=== PATIENT | male | born 1950 | race Caucasian/White ===

== ENCOUNTER 2017-04-07 22:00 | Emergency (ER) | payer MEDICARE ==
[2017-04-07] MEDS ORDERED: Ibuprofen TAB* 400 MG PO ONE (22:19)
[2017-04-07 22:20] VITALS: BP 136/84
[2017-04-07] MEDS ORDERED: Oseltamivir CAP* 75 MG PO ONE (22:39)
[2017-04-07] MEDS ORDERED: Oseltamivir CAP* 75 MG ONE (22:40)
--- NOTE | 2017-04-07 22:43 | UC ---
Luis Angel Claros Thomas, scribed for Andrew Reynoso MD on 04/07/17 at 2220 . Dizzy HPI HPI Summary: The patient is a 66 year old male presenting to Urgent Care complaining of dizziness that began today. For the last couple of days, the patient has experienced a dry cough. Today, the patient went to his primary care provider and was given Acetaminophen-Codeine and Benzonatate, which he took today at 12: 00. He has a fever at 100.6. Patient additionally c/o nasal discharge, nasal congestion, postnasal drip, and myalgia. Patient denies sinus pain and shortness of breath. - History Of Current Complaint Stated Complaint: DIZZY, WEAK Time Seen by Provider: 04/07/17 22:14 Hx Obtained From: Patient Onset/Duration: Lasting Hours - onset earlier today, Still Present Timing: Constant Severity Currently: Moderate Pain Intensity: 0 Pain Scale Used: 0-10 Numeric Associated Signs And Symptoms: Negative: SOB - Allergies/Home Medications Allergies/Adverse Reactions: Allergies Allergy/AdvReac Type Severity Reaction Status Date / Time No Known Allergies Allergy Verified 04/07/17 22:10 Home Medications: Home Medications Acetaminop/Codeine 30 MG TAB* [Tylenol/Codeine 30 MG TAB*] 1 tab PO Q6H PRN [History Confirmed 04/07/17] Aspirin [Aspirin 81 MG TAB] 81 mg PO 04/07/17 [History Confirmed 04/07/17] Benzonatate CAP* [Tessalon 100 MG CAP*] 100 mg PO TID PRN 04/07/17 [History Confirmed 04/07/17] Finasteride TAB* [Proscar TAB*] 5 mg PO DAILY 04/07/17 [History Confirmed ] Lisinopril TAB* [Prinivil TAB 10 MG*] 10 mg PO DAILY 04/07/17 [History Confirmed 04/07/17] PMH/Surg Hx/FS Hx/Imm Hx Previously Healthy: No - DM, Sciatica - Surgical History Surgical History: Yes Surgery Procedure, Year, and Place: HERNIA REPAIR, ORIF LEFT FOOT - Family History Known Family History: Positive: Other - Patient denies relevant FHx - Social History Lives: With Family Alcohol Use: No Substance Use Type: None Review of Systems Constitutional: Fever ENT: Nasal Discharge, Other - Nasal congestion, postnasal drip Musculoskeletal: Myalgia Neurological: Other - Dizziness Is Patient Immunocompromised?: No All Other Systems Reviewed And Are Negative: Yes Physical Exam Triage Information Reviewed: Yes Vital Signs: Initial Vital Signs Temp 100.6 F 04/07/17 22:12 Pulse 111 04/07/17 22:12 Resp 20 04/07/17 22:12 BP 136/84 04/07/17 22:12 Pulse Ox 97 04/07/17 22:12 Vital Signs Reviewed: Yes - Additional Comments VITAL SIGNS: Reviewed. He is a little tachycardic and febrile. GENERAL: Patient is a well-developed and nourished male who is lying comfortable in the stretcher. Patient is not in any acute respiratory distress. HEAD AND FACE: Normocephalic EYES: PERRLA, EOMI x 2. EARS: Hearing grossly intact. NOSE: He has nasal congestion. MOUTH: Oropharynx within normal limits. NECK: Supple, trachea is midline, no adenopathy, no JVD, no carotid bruit. CHEST: Symmetric, no tenderness at palpation LUNGS: He has coarse breath sounds bilaterally. CVS: Tachycardia, normal rhythm, S1 and S2 present, no murmurs or gallops appreciated. ABDOMEN: Soft, non-tender. Bowel sounds are normal. No abdominal abnormal pulsations. EXTREMITIES: Full ROM in all major joints, no edema, no cyanosis or clubbing. NEURO: Alert and oriented x 3. No acute neurological deficits. Speech is normal and follows commands. SKIN: Dry and warm Diagnostics - Laboratory Diagnostic Studies Completed/Ordered: EKG. Obtained at 10:07. Sinus tachycardia at 111 BPM. There is no STEMI. Normal axis. - Radiology CXR Xray Interpretation: No Acute Changes - Negative for acute process. Radiology Interpretation Completed By: ED Physician Dizzy Course/Dx - Course Course Of Treatment: The patient is a 66 year old male presenting to Urgent Care complaining of dizziness that began today. For the last couple of days, the patient has experienced a dry cough. Today, the patient went to his primary care provider and was given Acetaminophen-Codeine and Benzonatate, which he took today at 12:00. He has a fever at 100.6. Patient additionally c/o nasal discharge, nasal congestion, postnasal drip, and myalgia. Patient denies sinus pain and shortness of breath. The patient is feeling dizzy after he took Tylenol with codeine. I believe that the patients dizziness is secondary to the medications that he took. He is tachycardic because he has a fever; therefore, he was given ibuprofen. A chest x-ray was obtained and it is negative for any acute processes. Influenza A is positive. He will be diagnosed with Influenza and will follow up with primary care. - Differential Dx/Diagnosis Differential Diagnosis/HQI/PQRI: Other - URI, Pneumonia, Influenza Provider Diagnoses: Influenza Discharge - Discharge Plan Condition: Stable Disposition: HOME Prescriptions: Oseltamivir CAP* [Tamiflu CAP*] 75 mg PO BID #10 cap Patient Education Materials: Influenza (ED) Referrals: Jose Lazaro MD [Primary Care Provider] - 3 Days Additional Instructions: Follow up with your primary care physician in 3 days. Return to urgent care for any new or worsening symptoms. The documentation as recorded by the Luis Angel isaacs Thomas accurately reflects the service I personally performed and the decisions made by me, Andrew Reynoso MD.
--- NOTE | 2017-04-08 09:14 | RAD ---
Indication: Cough. 2 views of the chest including dual energy PA views demonstrate no mediastinal shift. Heart is of normal size and configuration. Lung trejo are clear. IMPRESSION: No active cardiopulmonary disease is noted.
== END 2017-04-07 22:45 | disposition home or self-care (01) ==
LOC: UCEAST 22:00
DX: J10.1 Influenza due to other identified influenza virus with other respiratory manifestations (principal)
CPT/HCPCS: 71020; 87502; 93005; 99212; A9270-GY; G0463

== ENCOUNTER 2017-04-15 08:36 | Emergency (ER) | payer MEDICARE ==
[2017-04-15 08:48] VITALS: BP 142/74
--- NOTE | 2017-04-15 09:03 | UC ---
Respiratory Complaint HPI - HPI Summary HPI Summary: 67 yo male was diagnosed with the flu about a week ago took tamiflu and improved now with return of cough no fever chest hurts with cough fatigue and low energy states he has had a cough since late February - History of Current Complaint Chief Complaint: UCChestPain Stated Complaint: COUGH Time Seen by Provider: 04/15/17 08:51 Hx Obtained From: Patient Onset/Duration: Sudden Onset, Gradual Onset, Lasting Minutes Timing: Constant Severity Initially: Moderate Severity Currently: Moderate Pain Intensity: 0 - pain with cough only Pain Scale Used: 0-10 Numeric Character: Cough: Productive Aggravating Factors: Nothing Alleviating Factors: Nothing Related History: Similar Episode/Dx as: - bronchitis - Allergies/Home Medications Allergies/Adverse Reactions: Allergies Allergy/AdvReac Type Severity Reaction Status Date / Time No Known Allergies Allergy Verified 04/07/17 22:10 PMH/Surg Hx/FS Hx/Imm Hx Previously Healthy: Yes Endocrine History: Dyslipidemia Cardiovascular History: Hypertension Respiratory History: Asthma, Bronchitis - Surgical History Surgical History: Yes Surgery Procedure, Year, and Place: HERNIA REPAIR, ORIF LEFT FOOT - Family History Known Family History: Positive: Hypertension, Other - Patient denies relevant FHx - Social History Alcohol Use: None Substance Use Type: None Smoking Status (MU): Never Smoked Tobacco - Immunization History Most Recent Influenza Vaccination: 2017 Review of Systems Constitutional: Fatigue Skin: Negative Eyes: Negative ENT: Negative Respiratory: Cough Cardiovascular: Chest Pain - during coughing spells Gastrointestinal: Negative Genitourinary: Negative Motor: Negative Neurovascular: Negative Musculoskeletal: Negative Neurological: Negative Psychological: Negative Is Patient Immunocompromised?: No All Other Systems Reviewed And Are Negative: Yes Physical Exam Triage Information Reviewed: Yes Appearance: Well-Appearing, No Pain Distress, Well-Nourished Vital Signs: Initial Vital Signs Temp 98.9 F 04/15/17 08:44 Pulse 86 04/15/17 08:44 Resp 16 04/15/17 08:44 BP 142/74 04/15/17 08:44 Pulse Ox 95 04/15/17 08:44 Eyes: Positive: Conjunctiva Clear ENT: Positive: Hearing grossly normal, TMs normal, Uvula midline. Negative: Nasal congestion, Nasal drainage, Tonsillar swelling, Tonsillar exudate, Trismus , Muffled voice, Hoarse voice, Sinus tenderness Neck: Positive: Supple, Nontender, No Lymphadenopathy Respiratory: Positive: Lungs clear, Normal breath sounds, No respiratory distress, No accessory muscle use. Negative: Chest non-tender - tender lateral chest (right and left) tender right sternal border Cardiovascular: Positive: RRR, No Murmur, Pulses Normal Musculoskeletal: Positive: ROM Intact, No Edema Neurological: Positive: Alert Psychological Exam: Normal Skin Exam: Normal UC Diagnostic Evaluation - Laboratory O2 Sat by Pulse Oximetry: 95 - low normal/not hypoxic - Radiology Xray Interpretation: No Acute Changes Radiology Interpretation Completed By: Radiologist - EKG Cardiac Rate: NL Cardiac Rhythm: Sinus: Normal Ectopy: None ST Segment: Normal Respiratory Course/Dx - Differential Dx/Diagnosis Provider Diagnoses: acute bronchitis. chest wall pain due to cough Discharge - Discharge Plan Condition: Stable Disposition: HOME Prescriptions: Amoxicillin PO (*) [Amoxicillin 875 MG (*)] 875 mg PO BID #14 tab Naproxen Sodium [Naproxen Sodium 500 MG TAB] 500 mg PO BID PRN #14 tab PRN Reason: Pain Patient Education Materials: Chest Pain (ED), Acute Bronchitis (ED) Referrals: Jose Lazaro MD [Primary Care Provider] - 4 Days (if not improved) Additional Instructions: recheck for new or worsening symptoms
--- NOTE | 2017-04-15 10:03 | RAD ---
INDICATION: Cough COMPARISON: Most recent comparison chest x-rays dated April 07, 2017 TECHNIQUE: PA and lateral views of the chest were obtained. FINDINGS: The heart and mediastinum are normal in size and contour. The lungs are grossly clear. There is no evidence of large pleural effusion. Visualized bones are normal for the patient's age. There is no radiographic evidence of free air beneath the diaphragm IMPRESSION: No radiographic evidence of acute cardiopulmonary disease.
== END 2017-04-15 10:34 | disposition home or self-care (01) ==
LOC: UCEAST 08:36
DX: J20.9 Acute bronchitis, unspecified (principal)
CPT/HCPCS: 71020; 93005; 99212; G0463

== ENCOUNTER 2018-08-24 09:39 | Emergency (ER) | payer MEDICARE ==
[2018-08-24 10:00] VITALS: BP 157/76
--- NOTE | 2018-08-24 10:04 | UC ---
UC General HPI - HPI Summary HPI Summary: WOKE UP 5 AM THIS MORNING FEELING WEAK AND UNCOORDINATED ON THE RIGHT SIDE. HAS MILD SUGGS BUT STATES HE OTHERWISE FEELS WELL. NO FEVER, NAUSEA, SOB, CP. NO SPEECH DISTURBANCE OR CONFUSION. DENIES ANY TRAUMA. TOOK A BABY ASA THIS MORNING. - History of Current Complaint Stated Complaint: RIGHT SIDE NUMBNESS Time Seen by Provider: 08/24/18 09:47 Hx Obtained From: Patient Onset/Duration: Sudden Onset, Lasting Hours, Still Present Timing: Constant Onset Severity: Moderate Current Severity: Moderate Associated Signs & Symptoms: Positive: Headache, Weakness. Negative: Agitation , Confusion, Edema, Fever, Nausea, SOB - Allergy/Home Medications Allergies/Adverse Reactions: Allergies Allergy/AdvReac Type Severity Reaction Status Date / Time No Known Allergies Allergy Verified 08/24/18 09:55 Home Medications: Home Medications Cyanocobalamin (Vitamin B-12) [Vitamin B-12] 1,000 mcg PO DAILY 08/24/18 [ History Confirmed 08/24/18] Flaxseed Oil [Linseed Oil] 1 tab PO DAILY 08/24/18 [History Confirmed 08/24/18] Garlic [Sm Garlic] 150 mg PO DAILY 08/24/18 [History Confirmed 08/24/18] Multivitamin [Multivitamins] 1 cap PO DAILY 08/24/18 [History Confirmed 08/24/18 ] PMH/Surg Hx/FS Hx/Imm Hx Endocrine History: Diabetes Cardiovascular History: Hypertension Respiratory History: Asthma - Surgical History Surgical History: Yes Surgery Procedure, Year, and Place: HERNIA REPAIR, ORIF LEFT FOOT - Family History Known Family History: Positive: Hypertension, Other - Patient denies relevant FHx - Social History Alcohol Use: None Substance Use Type: None Smoking Status (MU): Never Smoked Tobacco - Immunization History Most Recent Influenza Vaccination: 2017 Review of Systems All Other Systems Reviewed And Are Negative: Yes Constitutional: Positive: Negative Skin: Positive: Negative Respiratory: Positive: Negative Cardiovascular: Positive: Negative Gastrointestinal: Positive: Negative Neurological: Positive: Headache, Weakness Physical Exam Triage Information Reviewed: Yes Appearance: Well-Appearing, No Pain Distress, Well-Nourished Vital Signs Reviewed: Yes Eyes: Positive: Conjunctiva Clear ENT: Positive: Hearing grossly normal Neck: Positive: Supple Respiratory Exam: Normal Cardiovascular Exam: Normal Abdomen Description: Positive: Nontender, Soft Musculoskeletal: Positive: No Edema Neurological: Positive: Alert Psychological: Positive: Age Appropriate Behavior Skin: Positive: Rashes Diagnostics - EKG Cardiac Rate: NL - 98bpm Cardiac Rhythm: Sinus: Normal Ectopy: None ST Segment: Normal Course/Dx - Course Course Of Treatment: CONCERN FOR POSSIBLE INTRACRANIAL EVENT. TO [facility] [facility] BY AMBULANCE. - Diagnoses Provider Diagnosis: Right sided weakness - Physician Notifications Discussed Patient Care With: Osvaldo Contreras - TO [facility] BY AMBULANCE Time Discussed With Above Provider: 09:50 Instructed by Provider To: MD Will See In ED Discharge - Sign-Out/Discharge Documenting (check all that apply): Patient Departure All imaging exams completed and their final reports reviewed: No Studies - Discharge Plan Condition: Guarded Disposition: TRANS HIGHER LVL OF CARE FAC Referrals: Jose Lazaro MD [Primary Care Provider] - - Billing Disposition and Condition Condition: GUARDED Disposition: Trans Higher Lvl of Care Fac
== END 2018-08-24 10:04 | disposition short-term general hospital (02) ==
LOC: UCEAST 09:39
DX: R53.1 Weakness (principal); R27.8 Other lack of coordination; R51 Headache; E11.9 Type 2 diabetes mellitus without complications
CPT/HCPCS: 99213; G0463

== ENCOUNTER 2018-08-24 10:22 | Observation (INO) | payer MEDICARE ==
--- NOTE | 2018-08-24 10:31 | ED ---
Neurological HPI - HPI Summary HPI Summary: This patient is a 68 year old male presenting to [facility] with a chief complaint of weakness in his right arm, right side of his neck, and right side of his face 4 hours ago. The patient felt cold at night and this morning and when he woke up he felt the weakness. Patient has a Hx of diabetes and no Hx of stroke. Pt denies any fever, chills, erythema of eyes, sore throat, CP, SOB, cough, abdominal pain, N/V, dysuria, hematuria, myalgia, edema, rash, or dizziness. - History of Current Complaint Stated Complaint: RT SIDE WEAKNESS PER EMS Time Seen by Provider: 08/24/18 10:26 Hx Obtained From: Patient Onset/Duration: Started hours ago Onset Severity: Mild Current Severity: Mild Seizure Severity: Mild Neurological Deficit Location: Facial, RUE Character: Weak - Allergy/Home Medications Allergies/Adverse Reactions: Allergies Allergy/AdvReac Type Severity Reaction Status Date / Time No Known Allergies Allergy Verified 08/24/18 09:55 Home Medications: Home Medications Albuterol HFA INHALER* [Ventolin HFA Inhaler*] 2 puff INH Q4H PRN 08/24/18 [ History Confirmed 08/24/18] Aspirin EC TAB* [Ecotrin EC Low Dose 81 MG*] 81 mg PO BEDTIME 08/24/18 [History Confirmed 08/24/18] Cholecalciferol TAB* [Vitamin D TAB*] 400 unit PO DAILY 08/24/18 [History Confirmed 08/24/18] Flaxseed Oil [[place]-3 Flaxseed Oil] 1,000 mg PO DAILY 08/24/18 [History Confirmed 08/24/18] Garlic 150 mg PO DAILY 08/24/18 [History Confirmed 08/24/18] Multivitamins/Minerals TAB* [Theragran/minerals TAB*] 1 tab PO DAILY 08/24/18 [ History Confirmed 08/24/18] Pantoprazole TAB * [Protonix TAB*] 40 mg PO BEDTIME 08/24/18 [History Confirmed 08/24/18] Simvastatin (NF) [Zocor (NF)] 40 mg PO BEDTIME 08/24/18 [History Confirmed 08/24] PMH/Surg Hx/FS Hx/Imm Hx Endocrine/Hematology History: Reports: Hx Diabetes Cardiovascular History: Reports: Hx Hypertension Denies: Hx Pacemaker/ICD Respiratory History: Reports: Hx Asthma Sensory History: Denies: Hx Hearing Aid Psychiatric History: Denies: Hx Panic Disorder - Surgical History Surgery Procedure, Year, and Place: HERNIA REPAIR, ORIF LEFT FOOT - Family History Known Family History: Positive: Hypertension, Other - Patient denies relevant FHx - Social History Alcohol Use: None Substance Use Type: Reports: None Hx Tobacco Use: No Smoking Status (MU): Never Smoked Tobacco Review of Systems Negative: Fever, Chills Negative: Erythema Negative: Sore Throat Negative: Chest Pain Negative: Shortness Of Breath, Cough Negative: Abdominal Pain, Vomiting, Nausea Negative: dysuria, hematuria Negative: Myalgia, Edema Negative: Rash Neurological: Other - Neg: Dizziness Positive: Weakness All Other Systems Reviewed And Are Negative: Yes Physical Exam - Summary Physical Exam Summary: Constitutional: Well-developed, Well-nourished, Alert. (-) Distressed Skin: Warm, Dry HENT: Normocephalic; Atraumatic Eyes: Conjunctiva normal Neck: Musculoskeletal ROM normal neck. (-) JVD, (-) Stridor, (-) Tracheal deviation Cardio: Rhythm regular, rate normal, Heart sounds normal; Intact distal pulses; The pedal pulses are 2+ and symmetric. Radial pulses are 2+ and symmetric. (-) Murmur Pulmonary/Chest wall: Effort normal. (-) Respiratory distress, (-) Wheezes, (-) Rales Abd: Soft. (-) Tenderness, (-) Distension, (-) Guarding, (-) Rebound Musculoskeletal: (-) Edema. Pronation in RUE. Lymph: (-) Cervical adenopathy Neuro: Alert, Oriented x3, Strength normal, Cranial nerves II-XII are grossly intact. (-) Dysmetria, (-) Nystagmus, (-) Ataxia by finger to nose testing, (-) Sensory deficit. Subjective diminished sensation on the right side. Psych: Mood and affect Normal GCS: 15 Triage Information Reviewed: Yes Vital Signs Reviewed: Yes Diagnostics - Laboratory Result Diagrams: 08/24/18 10:39 08/24/18 10:39 Lab Statement: Any lab studies that have been ordered have been reviewed, and results considered in the medical decision making process. - Radiology CXR Radiology Interpretation Completed By: Radiologist Summary of Radiographic Findings: Small pleural effusion. ED Provider has reviewed this report. - CT Brain CT Interpretation Completed By: Radiologist Summary of CT Findings: No evidence for gross acute infarct, mass effect, or hemorrhage. ED Provider has reviewed this report. CTA Head CT Interpretation Completed By: Radiologist Summary of CT Findings: 1. There is eccentric calcified atheromatous plaque of the distal right commo ncarotid artery just proximal to the bifurcation with approximately 50% luminal diameter stenosis of the distal right carotid artery. 2. No internal carotid artery stenosis by nascet criteria. 3. No aneurysm, vascular malformation, occlusion, or stenosis of the visualized inracranial circulation. ED Provider has reviewed this report. - EKG 1029 Cardiac Rate: NL - 800 BPM EKG Rhythm: Sinus Rhythm Summary of EKG Findings: No STEMI. 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: Both Correctly Best Gaze (Only Horizontal Eye Movement): Normal Visual Field Testing: No Visual Loss Facial Paresis-Pt to Smile & Close Eyes or Grimace Symmetry: Normal/Symmetrical Motor Function - Right Arm: No Drift-Holds 10 Seconds Motor Function - Left Arm: No Drift-Holds 10 Seconds Motor Function - Right Leg: No Drift-Holds 10 Seconds Motor Function - Left Leg: No Drift-Holds 10 Seconds Limb Ataxia-Must be out of Proportion to Weakness Present: Absent Sensory (Use Pinprick to Test Arms/Legs/Trunk/Face): Normal Best Language (Describe Picture, Name Items): No Aphasia Dysarthria (Read Several Words): Normal Extinction and Inattention: No Abnormality Total Score: 0 Course/Dx - Course Course Of Treatment: This patient is a 68 year old male presenting to [facility] with a chief complaint of weakness in his right arm, right side of his neck, and right side of his face [address] reveals no evidence for gross acute infarct, mass effect, or hemorrhage. CTA Head reveals 1. There is eccentric calcified atheromatous plaque of the distal right common carotid artery just proximal to the bifurcation with approximately 50% luminal diameter stenosis of the distal right carotid artery. 2. No internal carotid artery stenosis by nascet criteria. 3. No aneurysm, vascular malformation, occlusion, or stenosis of the visualized inracranial circulation. CXR reveals a small pleural effusion. A plan for admission was discussed with the patient and he was agreeable with this plan. Dr. Campbell accepted the patient for admission. - Diagnoses Provider Diagnoses: CVA (cerebral vascular accident) - Physician Notifications Discussed Care Of Patient With: Calos Welsh - Neurology Time Discussed With Above Provider: 11:20 Instructed by Provider To: Other - Recommended CTA Head Discharge - Sign-Out/Discharge Documenting (check all that apply): Patient Departure - Admission - Discharge Plan Condition: Stable Disposition: ADMITTED TO [facility] - Attestation Statements Document Initiated by Scribe: Yes Documenting Scribe: Florentino Shah Provider For Whom Scribe is Documenting (Include Credential): Osvaldo Contreras MD Scribe Attestation: I, Florentino Shah, scribed for Osvaldo Contreras MD on 08/24/18 at 1622. Status of Scribe Document: Ready
[2018-08-24 10:57] LABS: ABS Basophils 0.1 10^3/ul (0-0.2); ABS Eosinophils 0.2 10^3/ul (0-0.6); ABS Lymphocytes 1.2 10^3/ul (1.0-4.8); ABS Monocytes 0.6 10^3/ul (0-0.8); ABS Neutrophils 2.4 10^3/ul (1.5-7.7); Eosinophil % 4.1 %; Hematocrit 35 % (42-52); Hemoglobin 11.9 g/dL (14.0-18.0); Lymphocyte % 27.5 %; Mean Corpuscular HGB Conc 34 g/dL (31-36); Mean Corpuscular Hemoglobin 30 pg (27-31); Mean Corpuscular Volume 88 fL (80-94); Mean Platelet Volume 9.7 fL (7.4-10.4); Nucleated Red Blood Cells % 0.1; Platelet Count 179 10^3/uL (150-450); Red Blood Count 3.99 10^6 /uL (4.18-5.48); Red Cell Distribution Width 14 % (10.5-15); White Blood Count 4.5 10^3/uL (3.5-10.8)
[2018-08-24 11:12] LABS: Albumin 4.2 g/dL (3.2-5.2); Albumin/Globulin Ratio 1.4 (1-3); BUN/Creatinine Ratio 15.5 (8-20); Calcium 9.3 mg/dL (8.6-10.3); EGFR African American 59.8 (>60); EGFR Non-African American 49.4 (>60); Globulin 2.9 g/dL (2-4); Potassium 4.5 mmol/L (3.5-5.0); Total Bilirubin 0.3 mg/dL (0.2-1.0); Total Protein 7.1 g/dL (6.4-8.9)
[2018-08-24 11:13] LABS: Activated Partial Thrombo Time 30.6 seconds (26.0-36.3)
[2018-08-24] MEDS ORDERED: Iodixanol* (CONTRAST) 320 MG/ML 100 ML SDV IV ONE (11:23)
[2018-08-24 12:54] LABS: Urine Appearance Clear; Urine Bilirubin Negative (Negative); Urine Blood Negative (Negative); Urine Color Yellow; Urine Glucose Negative (Negative); Urine Ketones Negative (Negative); Urine Nitrite Negative (Negative); Urine Protein Negative (Negative); Urine Urobilinogen Negative (Negative)
[2018-08-24] MEDS ORDERED: Dextrose 50% Syringe 50 ML* 25 GM/50 ML SYRINGE IV PUSH PRN (14:19)
[2018-08-24] MEDS ORDERED: hydrALAZINE IV* 20 MG/ML VIAL IV SLOW PU PRN (14:32)
[2018-08-24] MEDS ORDERED: Albuterol HFA INHALER* 8 gm MDI INH PRN (14:34)
[2018-08-24] MEDS: Clopidogrel TAB* 75 MG PO SCH (14:59)
[2018-08-24] MEDS ORDERED: Enoxaparin(*) 40 MG/0.4 ML SYR SUBCUT SCH (15:00)
--- NOTE | 2018-08-24 16:24 | CONS ---
CONSULTATION REPORT: DATE OF CONSULT: 08/24/18 PATIENT OF: Dr. Contreras. HISTORY OF PRESENT ILLNESS: This is a 68-year-old right-handed man who developed, over the course of last night, right-sided symptoms. He notes that when he was going to bed, he felt coldness in his right arm with no other symptoms. When he woke up at about 5 in the morning, he had developed, some time during the night, a right arm numbness, a little bit of left face and leg numbness on the right side less than in the arm. He has a little bit of weakness in the right arm and he did not detect any weakness in his leg other than when he walked. He felt like his right leg was not supporting him as much as the left leg. The symptoms have resolved now for him other than some numbness in the right arm and possibly in the face. He did no longer call the face numb, but it just felt slightly different to him. He has had no prior weakness or stroke-like symptoms. There has been no headache with this. No speech problems. No visual problems. When Dr. Contreras had called me, he was well out of the tPA window since his symptoms have developed some time before last known well at roughly 10 o'clock when he went to sleep last night. I recommended getting a CTA to see if there is large vessel occlusion, although with his NIH Stroke Scale, it would be unlikely. PAST MEDICAL HISTORY: He has no history of atrial fibrillation. PAST SURGICAL HISTORY: There have been no recent surgeries. He is status post herniorrhaphy in the past and ORIF on the left foot. MEDICATIONS AT HOME: Include: 1. Aspirin 81 mg daily. 2. Vitamin D daily. 3. Simvastatin 40 mg daily. 4. Protonix 40 mg daily. 5. Lisinopril 10 mg daily. 6. Requip 4 mg at bedtime daily. 7. Proscar 5 mg daily. He said he had history of diabetes, but he is not apparently on anything for this right now. FAMILY HISTORY: There is family history of hypertension. SOCIAL HISTORY: He does not smoke, drink, or use drugs. PHYSICAL EXAM: Vital signs show blood pressure 163/95, pulse 79, respirations 18, temperature 98.1. He was alert and oriented with normal speech and comprehension. Cranial nerves II through XII were intact. There was no facial droop. There was no visual field cut in either eye. He said the right side of his face was slightly different to touch than his left. Motor exam revealed normal tone and strength other than having a mild right pronator drift. Finger- to-nose was intact. Heel-to- catherine was intact. He had decreased sensation on his right side compared to his left to touch. Reflexes were 1 and equal. Toes were downgoing. Chest: Clear. Cardiovascular: Regular rate and rhythm. Abdomen is soft with positive bowel sounds. DIAGNOSTIC STUDIES/LAB DATA: His CT scan showed no acute findings. He had a CTA scan that showed about 50% carotid stenosis on the right side. Blood work included hematocrit of 35. Normal INR, PTT. Normal chemistries other than creatinine of 1.82, glucose 184. LDL of 96. UA has specific gravity of 1.020, but it was otherwise negative. IMPRESSION AND PLAN: I discussed with the admitting hospitalist and with the patient that he had a most likely small left hemispheric stroke affecting the right side in both strength and sensation, but not speech or visual symptoms. With the arm being most affected, this may well be a partial left MCA stroke, which seems to be in the process of improving at this moment. He is going to be on Plavix in addition to aspirin for 30 days and then switched to daily Plavix. His statin will be increased for a target LDL below 70. He is getting a cardiac echo with bubble study. Dr. Bliss who is taking over his neurological care this evening will be aware and please call for problems. He will be getting an MRI scan as well. Thank you for sharing his case. [id number]/[facility] #: [id number] TORRI
--- NOTE | 2018-08-24 16:40 | HP ---
CC: Dr. Lazaro * HISTORY AND PHYSICAL: DATE OF ADMISSION: 08/24/18 PRIMARY CARE PROVIDER: Dr. Lazaro. ATTENDING PHYSICIAN: Dr. Mickey Campbell.* (DICTATED BY BILL CARLIN) CHIEF COMPLAINT: Right-sided numbness and discoordination. HISTORY OF PRESENT ILLNESS: Osvaldo Howard is a 68-year-old white male with past medical history of diabetes mellitus type 2, does not take medication at home, hypertension, asthma, restless legs syndrome, CKD, hyperlipidemia, BPH, GERD, who presents to the emergency department via EMS from urgent care center, complaining of right-sided numbness and incoordination since approximately 5 o' clock in the morning today. The patient woke up this morning at 5 a.m. and noticed that he was having difficulty ambulating; sensation in his right side of his face, neck, right leg and right arm were diminished. Additionally, was having difficulty grasping a scoop for his dog's food in his right hand. He felt "uncoordinated" when walking. He denies that he or his noticed facial droop. The patient denies difficulty swallowing and changes to speech. The patient questions whether or not it is possible that these symptoms started earlier in the night because he remembers waking up in the middle of the night at some point and feeling like his right arm was cold even though he was under a blanket. He is unsure what time this was and fell back to sleep after that. Additionally when he arrived to the urgent care center this morning, he had a mild headache, which is now resolved. When the patient was at home, he took 2 doses of 325 mg of aspirin when he noticed his sym[toms. At the time of evaluation, the patient's symptoms are improving. He does not feel numbness in his face, neck, arm, or leg at this point and continues to be without difficulty speaking or swallowing and is headache-free. He denies visual changes, dizziness, or syncope. The patient denies chest pain, difficulty breathing, chest palpitations. EMERGENCY DEPARTMENT COURSE: When the patient arrived to the emergency department via EMS from urgent care, he immediately had a brain CT which demonstrated no evidence for gross acute infarct, mass effect, or hemorrhage. He additionally had a head CT angiogram, which demonstrated 50% occlusion to right common carotid artery. The hospitalists were then asked to evaluate the patient for admission. Vital signs when the patient arrived to the emergency department, temperature 98.1, heart rate 85, respiratory rate 18, O2 sat 98% on room air, blood pressure 149/75. PAST MEDICAL HISTORY: 1. Diabetes mellitus type 2, no medications at home. 2. Hypertension. 3. Asthma. 4. BPH. 5. Hyperlipidemia. 6. GERD. 7. CKD. 8. Restless legs syndrome. PAST SURGICAL HISTORY: 1. Inguinal hernia repair x2. 2. ORIF of left foot. 3. Pilonidal cystectomy x2. HOME MEDICATIONS: 1. Ropinirole 4 mg p.o. at bedtime. 2. Vitamin B12 1000 mcg p.o. bedtime. 3. Aspirin 81 mg p.o. daily. 4. Simvastatin 40 mg p.o. daily. 5. Pantoprazole 40 mg p.o. daily. 6. Multivitamin tab p.o. daily. 7. Vitamin D 400 units p.o. daily. 8. Garlic 150 mg p.o. daily. 9. Flaxseed oil 1000 mg p.o. daily. 10. Lisinopril 10 mg p.o. daily. 11. Finasteride 5 mg p.o. daily. 12. Rescue inhaler (unsure of which brand or dose) 2 puffs p.r.n. shortness of breath/wheezing. ALLERGIES: The patient has no known drug allergies. FAMILY HISTORY: Father had an VA in his 70s, in his 80s of bone cancer. Mother had a stroke in her 80s and later in her 80s of complications of CHF. 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 He lives with his and they have no children. The patient denies alcohol use, drug use, and tobacco use. REVIEW OF SYSTEMS: An 11-point review of systems was completed, and all pertinent positives and negatives are above in the HPI. All other systems are negative. PHYSICAL EXAMINATION GENERAL: White elderly male, who appears stated age, lying comfortably in emergency department stretcher, appearing in no acute distress. HEENT: Head: Normocephalic, atraumatic. Eyes: PERRL, sclerae anicteric, EOMI. No nystagmus. ENT: Mucous membranes are moist. NECK: Neck is supple and without JVD. LUNGS: Lungs are clear to auscultation throughout. Chest expansion is symmetrical with respirations. CARDIO: Regular rate and rhythm without murmurs, rubs, or gallops. ABDOMEN: Abdomen is soft, nontender, nondistended without masses or hepatosplenomegaly. EXTREMITIES: No clubbing, cyanosis, or edema. NEUROLOGIC: The patient is alert and oriented x3. Very minimally positive Romberg on right side. Strength is 5/5 in all extremities. Sensation to light touch is intact and equal throughout. The patient's gait is normal, able to toe walk and duck walk and squat. Cranial nerves II through XII are grossly intact. No ataxia noted. PSYCH: The patient is pleasant and cooperative. SKIN: Skin is warm, dry, and intact without ecchymosis or bruising. DIAGNOSTIC STUDIES/LAB DATA: White blood cell count 4.5, hemoglobin 11.9, hematocrit 35, platelet count 179. Sodium 139, potassium 4.5, chloride 107, CO2 of 24, BUN 22, creatinine 1.42, glucose is 184. Lactic acid 1.4, calcium 9.3, total bili 0.3, AST 23, ALT 19, alk phos 38, troponin 0.00. Triglycerides 159, cholesterol 163, LDL 96, HDL 35. Urinalysis is negative. INR is 1.00. EKG on 08/24/18, normal sinus rhythm, rate 80 beats per minute, no evidence of ST changes. There is isolated T-wave inversion in lead III which is new from EKG in 2017; however, this is isolated, normal axis. Brain CT on 08/24/18, impression: "No evidence for gross acute infarct, mass effect, or hemorrhage." Chest x-ray, 08/24/18, impression: "Small pleural effusion." Of my read, it does appear that there is a small pleural effusion on the left side. On 08/24/18, head CT angiogram, impression: 1. "There is eccentric calcified atheromatous plaque of the distal right common carotid artery just proximal to the bifurcation with approximately 50% luminal diameter stenosis of the right distal common carotid artery. 2. No internal carotid artery stenosis by NASCET criteria. 3. No aneurysm, vascular malformation, occlusion, or stenosis of the visualized intracranial circulation. ASSESSMENT AND PLAN: Osvaldo Howard is a 68-year-old white male with past medical history significant for hypertension, hyperlipidemia, diabetes mellitus type 2 - not on medication, restless legs syndrome, gastroesophageal reflux disease, chronic kidney disease, asthma and benign prostatic hypertrophy, who presents to the emergency department when awakening with right-sided unilateral numbness and incoordination of movement. The patient will be admitted in observation for: 1. Transient ischemic attack. By the time of my evaluation, the patient had almost entirely normal neurological exam aside from minimally positive Romberg sign on right side. Although CTA does demonstrate stenosis in the right carotid artery, all his symptomatology was on the right side and therefore, this carotid artery stenosis is asymptomatic. The patient's symptoms lasted for approximately less than 10 hours. The patient is unsure of the precise time in which the symptoms started, though just noticed when he woke up this morning. Though it is possible the symptoms started during the night, therefore he was out of the tpa window upon arrival to the ED. We will do neurological checks every [address] was negative and we will order an MRI of the brain. CTA as previously discussed. Lipid panel was taken, though this was nonfasting ; a fasting will be collected tomorrow along with hemoglobin A1c. Echocardiogram with bubble study will be ordered as well. Dr. Welsh had suggested that the patient's statin be increased to high intensity if his LDL is over 70 and suggests that he be started on Plavix about a loading dose and to continue this. Endarterectomy is not indicated at this time as it is asymptomatic and 50% and the patient did not meet criteria for tPA as he presented to emergency department over 4-1/2 hours after symptomatology onset. Dr. Welsh recommends the patient be continued on Plavix plus aspirin for 1 month and then after 1 month can be continued just on Plavix. 2. Diabetes mellitus type 2. The patient reports that he had an A1c possibly over 8 last time he was at his primary care provider's office, but has been watching his carb intake and attempting to lose weight and has since lost 10 pounds in the last month. We will recheck his A1c and likely a new medication will be started during this admission. I have put an order to obtain records from Dr. Lazaro's office. Fingersticks a.c. and at bedtime has been ordered and lispro sliding scale a.c. 3. Pleural effusion. Small pleural effusion in left lung found on CXR. No clinical findings on lung exam. Respirations and oxygen saturations are normal. Low concern at this point. We will continue to follow clinically. 4. Chronic kidney disease. The patient appears to have stage III chronic kidney disease. We will continue his lisinopril during his stay. 5. Hypertension. We will continue the patient's home lisinopril. He has been hypertensive in the emergency department. I have added p.r.n. hydralazine for his systolic blood pressure over 60. We will continue to monitor this and consider additional therapy if needed. 6. Hyperlipidemia. The patient is currently on simvastatin 40 mg p.o. daily and we will continue his simvastatin during his stay and this may need to be increased as discussed above per Dr. Welsh's recommendations. 7. Benign prostatic hypertrophy. The patient's home finasteride will be continued. 8. Restless legs syndrome. The patient's home ReQuip will be continued. 9. FEN. Carb consistent diet. IV fluids are indicated. 10. DVT prophylaxis. The patient has a DVT risk score of 3. He will be started on Lovenox 40 mg. 11. Code status. The patient is full code. TIME SPENT: Approximately 55 minutes was spent on this admission, approximately half of this time was spent at bedside. This case has been reviewed by my attending, Dr. Mickey Campbell, and he agrees with this plan of care. Should the patient need a surrogate medical decision maker, he would like his , Peyton Howard to do so, her phone number is [phone]. BILL CARLIN [id number]/[facility] #: [id number] TORRI
[2018-08-24] MEDS: Insulin LISPRO* 1 UNITS UNIT SUBCUT SCH (17:03)
--- NOTE | 2018-08-24 17:16 | ECHO ---
*[facility]* [place] [address] Fax #: [phone] Transthoracic Echocardiogram Patient: Lee Height: 70 in / Osvaldo Solorzano 177.8 cm : 1950 Weight: 193.6 lb / Study Date: 08/24/2018 88 kg Age: 68 BP: 163 / 95 Gender: M BMI/BSA: 27.8 kg/m^2 HR: 66 bpm / 2.06 m^2 *Tire Mold Tester: * Lilibeth Price [facility] *Referring Physician: * O'Anabell Bland *Reading Physician: * Devendra Ortiz MD Indications: TIA. History: Risk factors: Hypertension. Diabetes mellitus. Conclusions Summary: 1. Impressions: No previous study was available for comparison. 2. Left ventricle: The cavity size is normal. Wall thickness is mildly increased. Systolic function is at the lower limits of normal. The estimated ejection fraction is 50-55%. 3. Left atrium: The atrium is mildly to moderately dilated. 4. Atrial septum: Bubble study was negative 5. Mitral valve: There is mild to moderate regurgitation, with multiple jets. 6. Aortic valve: There is trivial regurgitation. 7. Tricuspid valve: There is trace to mild regurgitation. Study data: Transthoracic echocardiogram. Procedure: Transthoracic echocardiography was performed. Image quality was fair. A bubble study was performed. Images 96 and 97. Complete 2D, spectral Doppler, and color flow Doppler. Location: Emergency department. Patient status: Inpatient. Patient room number: ED-12. Rhythm: Normal sinus rhythm with PVC's. Findings Left ventricle: The cavity size is normal. Wall thickness is mildly increased. Systolic function is at the lower limits of normal. The estimated ejection fraction is 50-55%. Wall motion is normal; there are no regional wall motion abnormalities. Features are consistent with a pseudonormal left ventricular filling pattern, with concomitant abnormal relaxation and increased filling pressure (grade 2 diastolic dysfunction). Right ventricle: The cavity size is normal. Systolic function is low normal. Left atrium: The atrium is mildly to moderately dilated. Right atrium: The atrium is normal in size. Atrial septum: Bubble study was negative Mitral valve: The annulus is calcified. The leaflets are mildly thickened. There is no evidence of stenosis. There is mild to moderate regurgitation, with multiple jets. Aortic valve: The valve is trileaflet. The leaflets are mildly thickened. Thickening, consistent with sclerosis. There is no evidence of stenosis. There is trivial regurgitation. The LVOT to aortic valve VTI ratio is 0.53. The valve area by the velocity-time integral method is 2.01 cm^2. The ratio of LVOT to aortic valve peak velocity is 0.51. The valve area by the peak velocity method is 1.94 cm^2. The ratio of LVOT to aortic valve mean velocity is 0.61. The valve area by the mean velocity method is 2.3 cm^2. The mean systolic gradient is 4.0 mm Hg. The peak systolic gradient is 9.0 mm Hg. Tricuspid valve: The leaflets are normal thickness. There is no evidence of stenosis. There is trace to mild regurgitation. Pulmonic valve: The leaflets are normal thickness. There is no evidence of stenosis. There is trace to mild regurgitation. The peak systolic gradient is 2.0 mm Hg. Aorta: Ascending aorta: The ascending aorta is mildly dilated. Aortic arch: The aortic arch is appears normal. The aortic root is not dilated. Pericardium: A prominent pericardial fat pad is present. There is no pericardial effusion. Pulmonary arteries: The main pulmonary artery is normal-sized. Systemic veins: Inferior vena cava: The vessel is normal in size. The respirophasic diameter changes are in the normal range (>= 50%). Measurements Left ventricle Value Ref Right atrium Value Ref JOYCE, LAX 5.0 cm 4.2 - 5.8 SI dim, ES 4.9 cm 3.4 - 5.3 ESD, LAX (H) 4.1 cm 2.5 - 4.0 ML dim, ES, A4C 3.6 cm 2.6 - 4.4 FS, LAX (L) 17 % 25 - 43 Estimated RAP 3 mm Hg --------- PW, ED, LAX (H) 1.1 cm 0.6 - 1.0 JOYCE 5.0 cm 4.2 - 5.8 Aortic valve Value Ref ESD (H) 4.1 cm 2.5 - 4.0 Maximus diam, ED 2.5 cm --------- FS (L) 19 % 25 - 43 Peak v, S 1.48 m/sec --------- PW, ED (H) 1.1 cm 0.6 - 1.0 Mean v, S 0.94 m/sec --------- EF (L) 35 % 52 - 72 VTI, S 31.0 cm --------- Mass (H) 201 g 96 - 200 Mean grad, S 4.0 mm Hg --------- Mass/bsa 98 g/m^2 50 - 102 Peak grad, S 9.0 mm Hg --------- Mass/ht 113.22 g/m --------- LVOT/AV, VTI ratio 0.53 --------- Mass/ht^2.7 42.56 g/m^2.7 --------- EZ, VTI 2.01 cm^2 --------- E', lat maximus, TDI (L) 8.1 cm/sec >=10.0 LVOT/AV, Vpeak ratio 0.51 - -------- E/e', lat maximus, 7 --------- EZ, Vmax 1.94 cm^2 ---- ----- TDI E', med maximus, TDI (L) 5.7 cm/sec >=7.0 Mitral valve Value R ef E/e', med maximus, 9 --------- Peak E 0.53 m/sec ---- ----- TDI Peak A 0.64 m/sec --------- E', avg, TDI 6.9 cm/sec --------- Decel time 366 ms ---- ----- E/e', avg, TDI 8 <=14 Peak E/A ratio 0.8 - -------- LVOT Value Ref Pulmonic valve Value Ref Diam, S 2.20 cm --------- Peak v, S 0.65 m/sec --------- Area 3.8 cm^2 --------- Peak grad, S 2.0 mm Hg --------- Peak jatinder, S 0.75 m/sec --------- Mean jatinder, S 0.57 m/sec --------- Tricuspid valve Value Ref VTI, S 16.4 cm --------- TR peak v 2.3 m/sec <=2.8 Peak grad, S 2 mm Hg --------- Peak RV-RA grad, S 21 mm Hg --------- Mean grad, S 1 mm Hg --------- SV 62 ml --------- Aortic root Value Ref Root diam 3.5 cm <4.2 Ventricular septum Value Ref IVS, ED, LAX (H) 1.1 cm 0.6 - 1.0 Ascending aorta Value Ref IVS, ED (H) 1.1 cm 0.6 - 1.0 AAo AP diam, S 3.7 cm --------- Right ventricle Value Ref Aortic arch Value Ref JOYCE, LAX 3.1 cm --------- Arch diam 2.8 cm --------- JOYCE minor ax, A4C (H) 4.0 cm 1.9 - 3.5 mid Decending aorta Value Ref Pressure, S 24 mm Hg --------- Campos peak jatinder 0.46 m/sec --------- Left atrium Value Ref Pulmonary artery Value Ref AP dim, ES 3.80 cm 3.00 - Pressure, S 22.0 mm Hg --------- 4.00 ML dim, A4C 4.5 cm --------- Inferior vena cava Value Ref SI dim, A4C 6.0 cm --------- Diam 1.9 cm --------- Vol/bsa, ES, 1-p 33 ml/m^2 12 - 37 A4C Vol/bsa, ES, A/L (H) 41 ml/m^2 16 - 34 Legend: (L) and (H) chano values outside specified reference range. Prepared and electronically signed by Devendra Ortiz MD 08/24/2018 17:15
[2018-08-24] MEDS ORDERED: Pantoprazole TAB * 40 MG TAB PO SCH (21:00)
[2018-08-24] MEDS ORDERED: Atorvastatin* 20 MG TAB PO SCH (21:00)
[2018-08-24] MEDS ORDERED: rOPINIRole TAB* 4 MG PO SCH (21:00)
[2018-08-24] MEDS ORDERED: Cyanocobalamin TAB* 500 MCG PO SCH (21:00)
[2018-08-25 05:56] LABS: ABS Basophils 0.1 10^3/ul (0-0.2); ABS Eosinophils 0.2 10^3/ul (0-0.6); ABS Lymphocytes 1.7 10^3/ul (1.0-4.8); ABS Monocytes 0.7 10^3/ul (0-0.8); ABS Neutrophils 2.4 10^3/ul (1.5-7.7); Eosinophil % 4.6 %; Hematocrit 36 % (42-52); Hemoglobin 12.1 g/dL (14.0-18.0); Mean Corpuscular HGB Conc 33 g/dL (31-36); Mean Corpuscular Hemoglobin 29 pg (27-31); Mean Corpuscular Volume 88 fL (80-94); Mean Platelet Volume 9.5 fL (7.4-10.4); Nucleated Red Blood Cells % 0.1; Platelet Count 174 10^3/uL (150-450); Red Blood Count 4.12 10^6 /uL (4.18-5.48); Red Cell Distribution Width 14 % (10.5-15)
[2018-08-25 06:10] LABS: BUN/Creatinine Ratio 11.8 (8-20); Calcium 9.3 mg/dL (8.6-10.3); EGFR Non-African American 56.2 (>60); HDL Cholesterol 30.8 mg/dL; Potassium 4.1 mmol/L (3.5-5.0)
[2018-08-25] MEDS: Clopidogrel TAB* 75 MG PO SCH (08:27)
[2018-08-25] MEDS: Insulin LISPRO* 1 UNITS UNIT SUBCUT SCH ×2 (08:27→11:15)
[2018-08-25] MEDS ORDERED: Finasteride TAB* 5 MG PO SCH (09:00)
[2018-08-25] MEDS ORDERED: Aspirin EC TAB* 81 MG TAB.EC PO SCH (09:00)
[2018-08-25] MEDS ORDERED: Lisinopril TAB* 10 MG PO SCH (09:00)
[2018-08-25] MEDS ORDERED: Cholecalciferol TAB* 400 UNIT PO SCH (09:00)
[2018-08-25 11:36] VITALS: BP 136/79
--- NOTE | 2018-08-25 15:09 | DS ---
DISCHARGE SUMMARY: DATE OF ADMISSION: 08/24/18 DATE OF DISCHARGE: 08/25/18 PRIMARY DIAGNOSIS: Acute stroke. HOSPITAL COURSE: A 68-year-old male with past medical history of diabetes, diet controlled; hyperten lanette; asthma; restless legs syndrome; CKD; hyperlipidemia; BPH; GERD, came into the emergency room co mplaining of right-sided facial numbness and right-sided weakness and discoordination that started ar ound 5 a.m. yesterday. He had brain CT, which did not show any evidence of gross acute infarct, mass effect or hemorrhage. He had head CT angiogram which demonstrated 50% occlusion to the right common carotid artery. The patient was admitted to the hospital for possible TIA/stroke and Neurology cons ultation was obtained. The patient had a brain MRI, which later confirmed findings consistent with a n acute cortical infarct involving the left parietal lobe postcentral gyrus. The patient was seen by Dr. Welsh, Neurology. He recommended addition of Plavix with the aspirin for 30 days and then to be switched to daily Plavix. At this time, a prescription for the Plavix has been sent to his [facility]. The patient also continued on his aspirin. After 30 days, the patient can be on only Plavix. H e also recommended that the statin be increased for a target LDL below 70. The patient takes atorvas tatin 20 mg at home and this was increased to 40 mg and a prescription for this has been sent to his pharmacy as well. The patient had an echocardiogram done with bubble study, which showed systolic fu nction in lower limits of normal, estimated ejection fraction 50% to 55%. Left atrium mildly to mode rately dilated. Bubble study negative. Mitral valve with mild to moderate regurgitation with multip le jets, trivial aortic regurg, trace to mild tricuspid valve regurgitation. In the interim, the pat ient's symptoms have significantly improved. The patient's strength in his upper extremity bilateral ly noted to be good. The patient also noted to have no gait abnormality and the patient reports that its coordination is significantly improved. The patient's numbness in his face has also improved. In light of this, case was discussed with Neurology and they recommend that the patient can be discha rged and followup with them as an outpatient on above measures as described. The patient to follow up with his PCP in a week and the patient to follow up with Neurology/Dr. Welsh in 2 weeks. Vitals a nd labs noted to be stable at the time of discharge. WBC 5, hemoglobin 12.1, hematocrit 36, platelet s noted to be 174. Sodium 139, potassium 4.1, chloride 106, CO2 of 24, BUN 15, creatinine 1.27. Trigl ycerides 287, cholesterol 163, LDL 75, HDL 30.8. PHYSICAL EXAMINATION: HEENT: NCAT. Heart: S1, S2 present. Regular at the time of exam. Lungs: Clear to auscultation bilaterally. Abdomen: Soft. Extremities: Noted to have no edema. Neuro: Al ert and oriented. No focal deficits. Good strength in bilateral upper and lower extremities. Crani al nerves II through XII noted to be intact. The patient noted to have intact sensation in bilateral arm and leg. The patient not noted to have any dysarthria or speech difficulty. MEDICATION LIST: At the time of discharge: 1. Albuterol inhaler as needed. 2. Ropinirole 4 mg at bedtime. 3. Vitamin B12 1000 mcg at bedtime. 4. Aspirin 81 mg daily. 5. Pantoprazole 40 mg p.o. daily. 6. Vitamin D 400 units p.o. daily. 7. Garlic 150 mg p.o. daily. 8. Flaxseed oil 1000 mg daily. 9. Lisinopril 10 mg daily. 10. Finasteride 5 mg daily. 11. Plavix 75 mg daily. 12. Atorvastatin 40 mg at bedtime. CONDITION: Stable. DISPOSITION: The patient being discharged home. TIME SPENT: Total time spent on discharge is equal to 45 minutes. [id number]/[facility] #: [id number]
== END 2018-08-25 14:10 | disposition home or self-care (01) ==
LOC: ED 10:22 → MEDTELE 15:07
PROVIDERS: ADMIT Student in an Organized Health Care Education/Training Program; ATTEND Internal Medicine
DX: I63.9 Cerebral infarction, unspecified (principal); I12.9 Hypertensive chronic kidney disease with stage 1 through stage 4 chronic kidney disease, or unspecified chronic kidney disease; E11.22 Type 2 diabetes mellitus with diabetic chronic kidney disease; N18.9 Chronic kidney disease, unspecified; E78.5 Hyperlipidemia, unspecified; N40.0 Benign prostatic hyperplasia without lower urinary tract symptoms; K21.9 Gastro-esophageal reflux disease without esophagitis; Z79.82 Long term (current) use of aspirin; R53.1 Weakness; J45.909 Unspecified asthma, uncomplicated; G25.81 Restless legs syndrome; J90 Pleural effusion, not elsewhere classified; R20.0 Anesthesia of skin; R27.8 Other lack of coordination; R51 Headache
CPT/HCPCS: 36415; 70450; 70496; 70498; 70551; 71045; 80048; 80053; 80061; 81003; 83036; 83605; 84484; 85025; 85610; 85730; 93005; 93306; 96372; 99285; A9270-GY; G0378; J1650; Q9967

== ENCOUNTER 2019-02-14 08:36 | Emergency (ER) | payer MEDICARE ==
--- OUTSIDE RECORDS SUMMARY | 2019-02-14 08:44 | XMS REPORT | Continuity of Care Document ---
:1950 External Reference #:[id number] Author Name DAYDAY MorenoC (transmitted by agent of provider Adam Quinn) Address [address] [place] [address] Problems Active Problems Provider Date Allergic asthma without status asthmaticus Jimmy Ren M.D. Onset: Allergic rhinitis Jimmy Ren M.D. Onset: 05/09/2012 Allergic rhinitis due to pollen Jimmy Ren M.D. Onset: 05/09/2012 Mild intermittent asthma Chloe SherrillKIZZY barakat-C Onset: 06/22/2015 Allergic rhinitis due to animals SERINA Morse Onset: 06/22/2015 Mild intermittent asthma KIZZY Moreno-C Onset: 05/15/2017 Body mass index 25-29 - overweight Adam Quinn M.D. Onset: 05/19/2016 Social History Type Date Description Comments Sex Unknown ETOH Use Denies alcohol use Tobacco Use Start: Unknown Patient has never smoked Recreational Drug Use Denies Drug Use Allergies, Adverse Reactions, Alerts Description No Known Drug Allergies Medications Active Medications SIG Qnty Indications Ordering Date Provider Guaifenesin ER 1 by mouth every 12 60tabs J45.20 Lisa 09/24/2018 1200mg hours Uldrich, PROCESS CONTROL ENGINEER-C Tablets ER 12HR Ipratropium 1 vial every 4 180ml Lisa 05/15/2017 [place]/Albuterol hours as needed for Uldrich, PROCESS CONTROL ENGINEER-C Sulfate cough, chest congestion. DX: 0.5-2.5(3)mg/3ML J4520 Solution Ventolin HFA 2 every 4 hours as 1units Lisa 07/01/2015 needed Uldrich, PROCESS CONTROL ENGINEER-C 108(90Base) mcg/Act Aerosol Fluticasone Place 1 [place] In 48units Z68.29 Lisa 06/22/2015 Propionate Each Nostril Twice SERINA Garcia 50mcg/Act Daily Suspension Azelastine HCL 1 spray each 90ml Z68.29 Lisa 06/22/2015 (Nasal) nostril twice daily SERINA Garcia 0.1% Solution Albuterol Sulfate 1 vial via 1Box Lisa 06/22/2015 nebulizer every 4-6 KIZZY Garcia-C 1.25mg/3ML Nebulizer hours for cough, or wheeze or shortness of breath DX: J4520 Atorvastatin Calcium Take 1 Tablet By Unknown Mouth Every Day 20mg Tablets Atorvastatin Calcium Take 1 Tablet By Unknown Mouth Every Day 20mg Tablets Metformin HCL Unknown 500mg Tablets Clopidogrel Unknown Bisulfate 75mg Tablets Symbicort 2 inhalations am&pm 30.6gm Lisa SERINA Garcia 160-4.5mcg/Act Aerosol Multi For Him 50+ Unknown Tablets Finasteride Unknown 5mg Tablets Centrum Silver 1 by mouth every Unknown day Tablets Flaxseed Oil Unknown 1000mg Capsules Alprazolam Jose Lazaro 0.25mg Nata Ambrose Tablets Lisinopril Jose Lazaro 10mg Nata Ambrose Tablets B-12 Microlozenge Unknown 500mcg Tablets Sub Garlic 1 po qd Unknown 1000mg Capsules Vitamin D 1 po qd Unknown 2000Unit Capsules Proctosol HC Jose Lazaro 2.5% Nata Ambrose Cream Ropinirole HCL 2 tabs daily. Unknown 2mg Tablets Pantoprazole Sodium Unknown 40mg Tablets DR Medications Administered in Office Medication SIG Qnty Indications Ordering Provider Date Injection Allergy Injection 02/19/2014 Injection Injection Allergy Injection 01/22/2014 Injection Injection Allergy Injection 01/08/2014 Injection Injection Allergy Injection 12/23/2013 Injection Injection Allergy Injection 11/29/2013 Injection Injection Allergy Injection 11/15/2013 Injection Injection Allergy Injection 10/30/2013 Injection Injection Allergy Injection 10/16/2013 Injection Injection Allergy Injection 10/02/2013 Injection Injection Allergy Injection 09/06/2013 Injection Injection Allergy Injection 08/21/2013 Injection Injection Allergy Injection 08/07/2013 Injection Injection Allergy Injection 07/24/2013 Injection Injection Allergy Injection 06/26/2013 Injection Injection Allergy Injection 05/29/2013 Injection Injection Allergy Injection 05/01/2013 Injection Injection Allergy Injection 04/03/2013 Injection Injection Allergy Injection 03/20/2013 Injection Injection Allergy Injection 03/06/2013 Injection Injection Allergy Injection 02/13/2013 Injection Injection Allergy Injection 01/30/2013 Injection Injection Allergy Injection 01/16/2013 Injection Injection Allergy Injection 12/26/2012 Injection Injection Allergy Injection 12/14/2012 Injection Injection Allergy Injection 11/28/2012 Injection Injection Allergy Injection 11/14/2012 Injection Injection Allergy Injection 10/31/2012 Injection Injection Allergy Injection 10/17/2012 Injection Injection Allergy Injection 10/03/2012 Injection Injection Allergy Injection 09/19/2012 Injection Injection Allergy Injection 09/05/2012 Injection Injection Allergy Injection 08/22/2012 Injection Injection Allergy Injection 08/08/2012 Injection Injection Allergy Injection 07/25/2012 Injection Injection Jimmy Ren M.D. 06/06/2012 Injection Injection Jimmy Ren M.D. 05/23/2012 Injection Injection Jimmy Ren M.D. 05/09/2012 Injection Injection Jimmy Ren M.D. 04/25/2012 Injection Injection Jimmy Ren M.D. 04/11/2012 Injection Injection Jimmy eRn M.D. 03/28/2012 Injection Injection Jimmy Ren M.D. 02/22/2012 Injection Injection Jimmy Ren M.D. 01/25/2012 Injection Injection Jimmy Ren M.D. 12/28/2011 Injection Injection Jimmy Ren M.D. 11/30/2011 Injection Injection Jimmy Ren M.D. 11/02/2011 Injection Injection Jimmy Ren M.D. 10/05/2011 Injection Injection Joelle Moon MD 09/21/2011 Injection Injection Jimmy Gela, M.D. 08/24/2011 Injection Injection Jimmy Gela, M.DArnav 07/27/2011 Injection Injection Jimmy Gela, M.D. 07/13/2011 Injection Injection Jimmy Gela, M.D. 06/29/2011 Injection Injection Jimmy Gela, M.D. 06/01/2011 Injection Injection Jimmy Gela, M.D. 04/27/2011 Injection Injection Jimmy Gela, M.D. 03/28/2011 Injection Injection Jimmy Gela, M.D. 03/02/2011 Injection Injection Jimmy Gela, M.D. 02/16/2011 Injection Injection Jimmy Gela, M.D. 02/02/2011 Injection Injection Jimmy Gela, M.D. 01/19/2011 Injection Injection Jimmy Gela, M.D. 01/05/2011 Injection Injection Jimmy Gela, M.D. 12/22/2010 Injection Injection Jimmy Gela, M.D. 12/08/2010 Injection Injection Jimmy Gela, M.D. 11/24/2010 Injection Injection Jimmy Gela, M.D. 11/10/2010 Injection Injection Jimmy Gela, M.D. 10/27/2010 Injection Injection Jimmy Gela, M.D. 10/13/2010 Injection Injection Jimmy Gela, M.D. 09/29/2010 Injection Injection Jimmy Gela, M.D. 09/15/2010 Injection Injection Jimmy Gela, M.D. 09/01/2010 Injection Injection Jimmy Gela, M.D. 08/18/2010 Injection Injection Jimmy Gela, M.D. 08/04/2010 Injection Injection Jimmy Gela, M.D. 07/21/2010 Injection Injection Jimmy Gela, M.D. 06/23/2010 Injection Injection Jimmy Gela, M.D. 05/26/2010 Injection Injection Jimmy Gela, M.D. 05/12/2010 Injection Injection Jimmy Gela, M.D. 04/14/2010 Injection Injection Jimmy Gela, M.D. 03/31/2010 Injection Injection Jimmy Gela, M.D. 03/17/2010 Injection Injection Jimmy Gela, M.D. 03/03/2010 Injection Injection Jimmy Gela, M.D. 02/17/2010 Injection Injection Jimmy Gela, M.D. 02/03/2010 Injection Injection Jimmy Gela, M.DArnav 01/20/2010 Injection Injection Jimmy Gela, M.DArnav 01/06/2010 Injection Injection Jimmy Gela, M.DArnav 12/23/2009 Injection Injection Jimmy Gela, M.DArnav 12/09/2009 Injection Injection Jimmy Gela, M.DArnav 11/25/2009 Injection Injection Jimmy Gela, M.DArnav 11/11/2009 Injection Injection Jimmy Gela, M.DArnav 10/28/2009 Injection Injection Jimmy Gela, M.DArnav 10/14/2009 Injection Injection Jimmy Gela, M.DArnav 09/23/2009 Injection Injection Jimmy Gela, M.DArnav 09/16/2009 Injection Injection Jimmy Gela, M.DArnav 09/02/2009 Injection Injection Jimmy Gela, M.DArnav 08/19/2009 Injection Injection Jimmy Gela, M.DArnav 08/05/2009 Injection Injection Jimmy Gela, M.DArnav 07/22/2009 Injection Injection Jimmy Gela, M.DArnav 07/15/2009 Injection Injection Jimmy Gela, M.DArnav 07/08/2009 Injection Injection Jimmy Gela, M.DArnav 07/01/2009 Injection Injection Jimmy Gela, M.DArnav 06/24/2009 Injection Injection Jimmy Gela, M.DArnav 06/17/2009 Injection Injection Jimmy Gela, M.DArnav 06/10/2009 Injection Injection Jimmy Gela, M.DArnav 06/03/2009 Injection Injection Jimmy Gela, M.DArnav 05/27/2009 Injection Injection Jimmy Gela, M.DArnav 05/20/2009 Injection Injection Jimmy Gela, M.DArnav 05/13/2009 Injection Injection Jimmy Gela, M.DArnav 05/06/2009 Injection Injection Jimmy Gela, M.DArnav 04/29/2009 Injection Injection Jimmy Ren M.D. 04/22/2009 Injection Injection Jimmy Ren M.D. 2009 Injection Injection Jimmy Ren M.D. 04/08/2009 Injection Injection Jimmy Ren M.D. 04/01/2009 Injection Injection Jimmy Ren M.D. 03/25/2009 Injection Injection Jimmy Ren M.D. 03/18/2009 Injection Injection Jimmy Ren M.D. 03/11/2009 Injection Injection Jimmy Ren M.D. 03/04/2009 Injection Injection Jimmy Ren M.D. 02/25/2009 Injection Injection Jimmy Ren M.D. 02/18/2009 Injection Injection Jimmy Ren M.D. 02/11/2009 Injection Injection Jimmy Ren M.D. 02/04/2009 Injection Injection Jimmy Ren M.D. 01/28/2009 Injection Injection Jimmy Ren M.D. 01/21/2009 Injection Immunizations CPT Code Status Date Vaccine Lot # 25442 Given 02/15/2013 Influenza Vaccine 13075 Given Unknown Pneumococcal Vaccine 06683 Given Unknown Pneumococcal Vaccine 79918 Given Unknown Influenza Vaccine 42475 Given Unknown Influenza Vaccine Vital Signs Date Vital Result Comment 12/31/2018 10:52am Height 68.5 inches 5'8.50" Weight 196.00 lb Weight 88.906 kg Respiratory Rate 16 /min Heart Rate 77 /min O2 % BldC Oximetry 98 % BP Systolic 137 mmHg BP Diastolic 86 mmHg Asthma Control Test 21 Fractional Exhaled Nitric Oxide 32 BMI (Body Mass Index) 29.4 kg/m2 09/24/2018 9:15am Height 68.5 inches 5'8.50" Weight 197.00 lb Weight 89.359 kg Respiratory Rate 18 /min Heart Rate 84 /min O2 % BldC Oximetry 98 % BP Systolic 120 mmHg BP Diastolic 71 mmHg Asthma Control Test 24 Fractional Exhaled Nitric Oxide 27 BMI (Body Mass Index) 29.5 kg/m2 Results Description No Information Available Procedures Date Code Description Status 12/31/2018 13422 Nitric Oxide Gas Determination Completed 09/24/2018 30043 Nitric Oxide Gas Determination Completed 09/24/2018 39713 Pre PFT Completed 08/27/2018 09675 Nitric Oxide Gas Determination Completed 08/27/2018 62486 Pre PFT Completed Medical Devices Description No Information Available Encounters Type Date Location Provider Dx Diagnosis Office Visit 12/31/2018 Jhoana Garcia J45.20 Mild intermittent 11:00a [employer] asthma, uncomplicated J30.81 Allergic rhinitis due to animal (cat) (dog) hair and dander J30.2 Other seasonal allergic rhinitis J30.1 Allergic rhinitis due to pollen Office Visit 09/24/2018 9:20a Jhoana Garcia J45.20 Mild intermittent [employer] ENGINE[employer] asthma, uncomplicated J30.81 Allergic rhinitis due to animal (cat) (dog) hair and dander J30.2 Other seasonal allergic rhinitis J30.1 Allergic rhinitis due to pollen J30.89 Other allergic rhinitis Office Visit 08/27/2018 9:40a Jhoana Garcia J45.20 Mild intermittent [employer] ENG[employer]ER-C asthma, uncomplicated J30.81 Allergic rhinitis due to animal (cat) (dog) hair and dander J30.2 Other seasonal allergic rhinitis J30.1 Allergic rhinitis due to pollen Assessments Date Code Description Provider 12/31/2018 J45.20 Mild intermittent asthma, uncomplicated Adam Quinn M.D. 12/31/2018 J45.20 Mild intermittent asthma, uncomplicated Lisa Sondrich, PROCESS CONTROL ENGINEER-C 12/31/2018 J30.81 Allergic rhinitis due to animal (cat) (dog) Adam Quinn M.D. hair and dander 12/31/2018 J30.81 Allergic rhinitis due to animal (cat) (dog) Lisa Sondrich, PROCESS CONTROL ENGINEER-C hair and dander 12/31/2018 J30.2 Other seasonal allergic rhinitis Adam Quinn M.D. 12/31/2018 J30.2 Other seasonal allergic rhinitis Lisa Uldrich, PROCESS CONTROL ENGINEER-C 12/31/2018 J30.1 Allergic rhinitis due to pollen Adam Quinn M.D. 12/31/2018 J30.1 Allergic rhinitis due to pollen Lisa Uldrich, PROCESS CONTROL ENGINEER-C 09/24/2018 J45.20 Mild intermittent asthma, uncomplicated Adam Quinn M.D. 09/24/2018 J45.20 Mild intermittent asthma, uncomplicated KIZZY Moreno-C 09/24/2018 J30.81 Allergic rhinitis due to animal (cat) (dog) Adam Quinn M.D. hair and dander 09/24/2018 J30.81 Allergic rhinitis due to animal (cat) (dog) KIZZY Moreno-C hair and dander 09/24/2018 J30.2 Other seasonal allergic rhinitis Adam Quinn M.D. 09/24/2018 J30.2 Other seasonal allergic rhinitis KIZZY Moreno-C 09/24/2018 J30.1 Allergic rhinitis due to pollen Adam Quinn M.D. 09/24/2018 J30.1 Allergic rhinitis due to pollen KIZZY Moreno-C 09/24/2018 J30.89 Other allergic rhinitis KIZZY Moreno-C 08/27/2018 J45.20 Mild intermittent asthma, uncomplicated Adam Quinn M.D. 08/27/2018 J45.20 Mild intermittent asthma, uncomplicated KIZZY Moreno-C 08/27/2018 J30.81 Allergic rhinitis due to animal (cat) (dog) Adam Quinn M.D. hair and dander 08/27/2018 J30.81 Allergic rhinitis due to animal (cat) (dog) KIZZY Moreno-Tiffanie hair and dander 08/27/2018 J30.2 Other seasonal allergic rhinitis Adam Quinn M.D. 08/27/2018 J30.2 Other seasonal allergic rhinitis KIZZY Moreno-C 08/27/2018 J30.1 Allergic rhinitis due to pollen Adam Quinn M.D. 08/27/2018 J30.1 Allergic rhinitis due to pollen SERINA Moreno Plan of Treatment Future Appointment(s):07/01/2019 9:20 am - SERINA Moreno at [place] Functional Status Description No Information Available Mental Status Description No Information Available Referrals Description No Information Available
--- OUTSIDE RECORDS SUMMARY | 2019-02-14 08:44 | XMS REPORT | Continuity of Care Document ---
:1950 External Reference #:[id number] Author Name SERINA Moreno Address [address] [place] [address] Problems Active Problems Provider Date Allergic asthma without status asthmaticus Jimmy Ren M.D. Onset: Allergic rhinitis Jimmy Ren M.D. Onset: 05/09/2012 Allergic rhinitis due to pollen Jimmy Ren M.D. Onset: 05/09/2012 Mild intermittent asthma SERINA Morse Onset: 06/22/2015 Allergic rhinitis due to animals SERINA Morse Onset: 06/22/2015 Mild intermittent asthma SERINA Moreno Onset: 05/15/2017 Body mass index 25-29 - [...] 60tabs J45.20 Lisa 09/24/2018 1200mg hours Uldrich, SHAVING MACHINE OPERATOR-C Tablets ER 12HR Ipratropium 1 vial every 4 180ml Lisa 05/15/2017 [place]/Albuterol hours as needed for Uldrich, SHAVING MACHINE OPERATOR-C Sulfate cough, chest congestion. DX: 0.5-2.5(3)mg/3ML J4520 Solution Ventolin HFA 2 every 4 hours as 1units Lisa 07/01/2015 needed Uldrich, SHAVING MACHINE OPERATOR-C 108(90Base) mcg/Act Aerosol Fluticasone Place 1 [place] In 48units Z68.29 Lisa 06/22/2015 Propionate Each Nostril Twice KIZZY Garcia-Tiffanie 50mcg/Act Daily Suspension Azelastine HCL 1 spray each 90ml Z68.29 Lisa 06/22/2015 (Nasal) nostril twice daily KIZZY Garcia-Tiffanie 0.1% Solution Albuterol Sulfate 1 vial via [...] Injection Allergy Injection 07/25/2012 Injection Injection Jimmy Nata Ren 06/06/2012 Injection Injection Jimmy Nata Ren 05/23/2012 Injection Injection Jimmy Ren M.D. 05/09/2012 Injection Injection Jimmy Nata Ren 04/25/2012 Injection Injection Jimmy Nata Ren 04/11/2012 Injection Injection Jimmy Nata Ren 03/28/2012 Injection Injection Jimmy Nata Ren 02/22/2012 Injection Injection Jimmy Nata Ren 01/25/2012 Injection Injection Jimmy Nata Ren 12/28/2011 Injection Injection Jimmy Nata eRn 11/30/2011 Injection Injection Jimmy Ren M.D. 11/02/2011 Injection Injection Jimmy Ren M.D. 10/05/2011 Injection Injection Joelle Moon MD 09/21/2011 Injection Injection Jimmy Gela, M.D. 08/24/2011 Injection Injection Jimmy Gela, M.D. 07/27/2011 Injection Injection Jimmy Gela, M.D. 07/13/2011 [...] Injection Jimmy Gela, M.D. 08/18/2010 Injection Injection Jimym Gela, M.D. 08/04/2010 Injection Injection Jimmy Gela, [...] Gela, M.D. 02/03/2010 Injection Injection Jimmy Gela, M.D. 01/20/2010 Injection Injection Jimmy Gela, M.DArnav 01/06/2010 [...] Injection Jimmy Gela, M.DArnav 06/24/2009 Injection Injection Ijmmy Gela, M.DArnav 06/17/2009 Injection Injection Jimmy Gela, M.DArnav 06/10/2009 Injection Injection Jimmy Gela, M.DArnav 06/03/2009 Injection Injection Jimmy Gela, M.DArnav 05/27/2009 Injection Injection Jimmy Gela, M.D. 05/20/2009 Injection Injection Jimmy Gela, M.DArnav 05/13/2009 Injection Injection Jimmy Gela, M.DArnav 05/06/2009 Injection Injection Jimmy Gela, M.DArnav 04/29/2009 Injection Injection Jimmy Gela, M.D. 04/22/2009 Injection Injection Jimmy Ren M.D. [...] CPT Code Status Date Vaccine Lot # [id number] Given 02/15/2013 Influenza Vaccine 55110 Given Unknown Pneumococcal Vaccine 05527 Given Unknown Pneumococcal Vaccine 48685 Given Unknown Influenza Vaccine 17980 Given Unknown Influenza Vaccine Vital Signs Date [...] Available Procedures Date Code Description Status 12/31/2018 38414 Nitric Oxide Gas Determination Completed 09/24/2018 74547 Nitric Oxide Gas Determination Completed 09/24/2018 70069 Pre PFT Completed 08/27/2018 02175 Nitric Oxide Gas Determination Completed 08/27/2018 12898 Pre PFT Completed Medical Devices Description No Information Available Encounters Type Date Location Provider Dx Diagnosis Office Visit 09/24/2018 [place] Garcia, J45.20 Mild intermittent 9:20a [employer] MACHINE OPER[employer]-C asthma, uncomplicated J30.81 Allergic rhinitis due to animal (cat) (dog) hair and dander J30.2 Other seasonal allergic rhinitis J30.1 Allergic rhinitis due to pollen J30.89 Other allergic rhinitis Office Visit 08/27/2018 9:40a Jhoana Lisa Garcia J45.20 Mild intermittent [employer]AVING MACHINE OPERATOR-C asthma, uncomplicated J30.81 Allergic rhinitis due to animal (cat) (dog) hair and dander J30.2 Other seasonal allergic rhinitis J30.1 Allergic rhinitis due to pollen Assessments Date Code Description Provider 12/31/2018 J45.20 Mild intermittent asthma, uncomplicated Lisa Uldrich, SHAVING MACHINE OPERATOR-C 12/31/2018 J30.81 Allergic rhinitis due to animal (cat) (dog) Lisa Sondrich, SHAVING MACHINE OPERATOR-C hair and dander 12/31/2018 J30.2 Other seasonal allergic rhinitis Lisa Ulich, SHAVING MACHINE OPERATOR-C 12/31/2018 J30.1 Allergic rhinitis due to pollen Lisa Garcia, SHAVING MACHINE OPERATOR-C 09/24/2018 J45.20 Mild intermittent asthma, uncomplicated Adam Quinn M.D. 09/24/2018 J45.20 Mild intermittent asthma, uncomplicated Lisa Uldrich, SHAVING MACHINE OPERATOR-C 09/24/2018 J30.81 Allergic rhinitis due to animal (cat) (dog) Adam Quinn M.D. hair and dander 09/24/2018 J30.81 Allergic rhinitis due to animal (cat) (dog) Lisa Uldrich, SHAVING MACHINE OPERATOR-C hair and dander 09/24/2018 J30.2 Other seasonal allergic rhinitis Adam Quinn M.D. 09/24/2018 J30.2 Other seasonal allergic rhinitis Lisa Radha, SHAVING MACHINE OPERATOR-C 09/24/2018 J30.1 Allergic rhinitis due to pollen Adam Quinn M.D. 09/24/2018 J30.1 Allergic rhinitis due to pollen SERINA Moreno 09/24/2018 J30.89 Other allergic rhinitis SERINA Moreno 08/27/2018 J45.20 Mild intermittent asthma, uncomplicated Adam Quinn M.D. 08/27/2018 J45.20 Mild intermittent asthma, uncomplicated SERINA Moreno 08/27/2018 J30.81 Allergic rhinitis due to animal (cat) (dog) Adam Quinn M.D. hair and dander 08/27/2018 J30.81 Allergic rhinitis due to animal (cat) (dog) SERINA Moreno hair and dander 08/27/2018 J30.2 Other seasonal allergic rhinitis Adam Quinn M.D. 08/27/2018 J30.2 Other seasonal allergic rhinitis SERINA Moreno 08/27/2018 J30.1 Allergic rhinitis due to pollen Adam Quinn M.D. 08/27/2018 J30.1 Allergic rhinitis due to pollen SERINA Moreno Plan of Treatment 12/31/2018 - DAYDAY MorenoCJ45.20 Mild intermittent asthma, rvnofvpjnpoykU74.81 Allergic rhinitis due to animal (cat) (dog) hair and bcibivQ33.2 Other seasonal allergic owsrdwiqB88.1 Allergic rhinitis due to pollenRecommendations:Continue all medications as prescribed.Refrain from wearing perfumes/scented colognes while visitingour office. Try the Guaifenesin 1 twice a day Use the Symbicort 2 puffs twice a day Start the Zyrtec 1 at bedtime Can use Tatyana 1 anytime Continue the Fluticasone 2 sprays daily Continue the azelastine 2 sprays daily Continue the Ventolin 2 puffs every 4 hours as needed for cough, shortness of breath, wheezing and chest congestion.Monitor Albuterol use. If using more than 2x/week, please call the office as your asthma medications may need to be adjusted. Use the nebulizer with the albuterol at bedtime Functional Status Description No Information Available Mental Status Description No Information Available Referrals Description No Information Available
[2019-02-14 08:49] VITALS: BP 153/94
--- NOTE | 2019-02-14 09:21 | UC ---
Skin Complaint HPI - HPI Summary HPI Summary: The patient is a 68-year-old male who removed 3 ticks about 5 days ago. He works outdoors a lot and does a tick check whenever he gets indoors. He suspects the ticks were attached just a few hours. He removed to ticks from his chest atraumatically. The third tick was located on his right hip and he had trouble seeing it. He removed it with tweezers but in the process remove some skin as well. The area is red and has a slight crusty discharge. He is here because of concern of skin infection. - History of Current Complaint Chief Complaint: UCSkin Time Seen by Provider: 02/14/19 09:13 Stated Complaint: TICK BITE Hx Obtained From: Patient Onset/Duration: Gradual Onset Skin Exposure Onset/Duration: Days Ago Onset Severity: Mild Current Severity: Mild Pain Intensity: 0 Pain Scale Used: 0-10 Numeric Location: Discrete Character: Redness Aggravating Factor(s): Nothing Alleviating Factor(s): Nothing Associated Signs & Symptoms: Positive: Negative Related History: Insect Bite/Sting - Allergy/Home Medications Allergies/Adverse Reactions: Allergies Allergy/AdvReac Type Severity Reaction Status Date / Time No Known Allergies Allergy Verified 02/14/19 08:49 Home Medications: Home Medications Atorvastatin* [Lipitor 20 MG*] 20 mg PO BEDTIME 02/14/19 [History Confirmed ] Budesonide/Formote 160/4.5(NF) [Symbicort 160/4.5 (NF)] 2 puff INH DAILY [History Confirmed 02/14/19] metFORMIN* [Glucophage 500 MG TAB *] 500 mg PO BID 02/14/19 [History Confirmed 02/14/19] PMH/Surg Hx/FS Hx/Imm Hx Previously Healthy: Yes Endocrine History: Diabetes, Dyslipidemia Cardiovascular History: Hypertension Respiratory History: COPD Neurological History: CVA - Surgical History Surgical History: Yes Surgery Procedure, Year, and Place: HERNIA REPAIR, ORIF LEFT FOOT - Family History Known Family History: Positive: Hypertension, Other - Patient denies relevant FHx - Social History Alcohol Use: Rare Substance Use Type: None Smoking Status (MU): Never Smoked Tobacco - Immunization History Most Recent Influenza Vaccination: 2018 Most Recent Pneumonia Vaccination: pt. reports less than 5 years ago. Review of Systems All Other Systems Reviewed And Are Negative: Yes Constitutional: Positive: Negative Skin: Positive: Negative Eyes: Positive: Negative ENT: Positive: Negative Respiratory: Positive: Negative Cardiovascular: Positive: Negative Gastrointestinal: Positive: Negative Genitourinary: Positive: Negative Motor: Positive: Negative Neurovascular: Positive: Negative Musculoskeletal: Positive: Negative Neurological: Positive: Negative Psychological: Positive: Negative Physical Exam Triage Information Reviewed: Yes Appearance: Well-Appearing, No Pain Distress, Well-Nourished Vital Signs: Initial Vital Signs Temp 98.5 F 02/14/19 08:44 Pulse 88 02/14/19 08:44 Resp 16 02/14/19 08:44 BP 153/94 02/14/19 08:44 Pulse Ox 96 02/14/19 08:44 Vital Signs Reviewed: Yes Eyes: Positive: Conjunctiva Clear ENT: Negative: Hearing grossly normal, Nasal congestion, Nasal drainage, Trismus , Muffled voice, Hoarse voice Dental: Negative: Abscess @ Neck: Positive: Supple Respiratory: Positive: Lungs clear, Normal breath sounds, No respiratory distress, No accessory muscle use Cardiovascular: Positive: RRR, No Murmur Neurological: Positive: Alert Psychological Exam: Normal Skin Exam: Other - small 3 mm traumatic ulceration with 2mm surrounding erthyma right hip honey crusted Course/Dx - Diagnoses Provider Diagnosis: Impetigo, Tick bite Discharge ED - Sign-Out/Discharge Documenting (check all that apply): Patient Departure All imaging exams completed and their final reports reviewed: No Studies - Discharge Plan Condition: Stable Disposition: HOME Prescriptions: Mupirocin 2% OINT* [Bactroban 2 % Oint*] 1 applic TOPICAL TID #1 tube Patient Education Materials: Impetigo (ED) Referrals: Jose Lazaro MD [Primary Care Provider] - 5 Days (if not better) Additional Instructions: gently clean three times daily with soap and water gently dry apply a thin film of bactroban ointment - Billing Disposition and Condition Condition: STABLE Disposition: Home
== END 2019-02-14 09:25 | disposition home or self-care (01) ==
LOC: UCEAST 08:36
DX: S20.369A Insect bite (nonvenomous) of unspecified front wall of thorax, initial encounter (principal); S70.261A Insect bite (nonvenomous), right hip, initial encounter; L01.00 Impetigo, unspecified; E78.5 Hyperlipidemia, unspecified; I10 Essential (primary) hypertension; E11.9 Type 2 diabetes mellitus without complications; J44.9 Chronic obstructive pulmonary disease, unspecified; Z86.73 Personal history of transient ischemic attack (TIA), and cerebral infarction without residual deficits; Z79.899 Other long term (current) drug therapy; Z79.84 Long term (current) use of oral hypoglycemic drugs; W57.XXXA Bitten or stung by nonvenomous insect and other nonvenomous arthropods, initial encounter; Y92.9 Unspecified place or not applicable
CPT/HCPCS: 99212; G0463

== ENCOUNTER 2020-10-23 11:09 | Inpatient (IN) ==
[2020-10-23] MEDS ORDERED: Lactated Ringers 1000 ml BAG 1,000 ML IV ONE ×2 (11:21→12:19)
[2020-10-23 11:47] LABS: Hematocrit 34 % (42-52); Hemoglobin 11.1 g/dL (14.0-18.0); Mean Corpuscular HGB Conc 33 g/dL (31-36); Mean Corpuscular Hemoglobin 29 pg (27-31); Mean Corpuscular Volume 88 fL (80-94); Mean Platelet Volume 9.3 fL (7.4-10.4); Platelet Count 141 10^3/uL (150-450); Red Blood Count 3.83 10^6 /uL (4.18-5.48); Red Cell Distribution Width 14 % (10-15); White Blood Count 4.6 10^3/uL (3.5-10.8)
[2020-10-23 12:06] LABS: ALT 38 U/L (7-52); AST 39 U/L (13-39); Albumin 3.4 g/dL (3.2-5.2); Albumin/Globulin Ratio 0.9 (1-3); Alkaline Phosphatase 45 U/L (35-149); Anion Gap 12 mmol/L (2-11); Blood Urea Nitrogen 67 mg/dL (6-24); CO2 Carbon Dioxide 17 mmol/L (22-32); Calcium 8.9 mg/dL (8.6-10.3); Chloride 92 mmol/L (101-111); EGFR African American 36.6 (>60); EGFR Non-African American 30.3 (>60); Globulin 3.6 g/dL (2-4); Glucose 251 mg/dL (70-100); Magnesium 1.4 mg/dL (1.9-2.7); Potassium 4.5 mmol/L (3.5-5.0); Sodium 121 mmol/L (135-145)
[2020-10-23 12:09] LABS: Troponin I 0.03 ng/mL (<0.03)
[2020-10-23 12:36] LABS: TSH Ultra Thyroid Stim Horm 0.58 mcIU/mL (0.34-5.60)
[2020-10-23 12:53] LABS: Urine Appearance Cloudy; Urine Bilirubin Negative (Negative); Urine Blood 1+ (Negative); Urine Color Yellow; Urine Glucose Negative (Negative); Urine Ketones Negative (Negative); Urine Nitrite Negative (Negative); Urine Protein Negative (Negative); Urine Specific Gravity 1.012 (1.002-1.030); Urine Urobilinogen Negative (Negative)
[2020-10-23 12:55] LABS: RBC Morphology Normal (Normal)
[2020-10-23 12:56] LABS: ABS Lymphocytes 0.7 10^3/ul (1.0-4.8); ABS Monocytes 0.6 10^3/ul (0-0.8); ABS Neutrophils 3.3 10^3/ul (1.5-7.7); Lymphocyte % 16.2 %; Nucleated Red Blood Cells % 0.1
[2020-10-23 13:19] LABS: Urine Bacteria Absent (Absent); Urine Red Blood Cell Trace(0-2/hpf) (Absent); Urine Squamous Epithelial Cell Present (Absent); Urine White Blood Cell Trace(0-5/hpf) (Absent)
[2020-10-23 13:45] LABS: Venous Bicarbonate HCO3 18.1 mmol/L (24-28)
[2020-10-23 13:47] LABS: Urine Creatinine Concentration 72.47 mg/dL
[2020-10-23] MEDS ORDERED: Albuterol/Ipratropium NEB.SOL (2.5/0.5 MG) 3 ML NEB.SOLN INH PRN (15:19)
[2020-10-23] MEDS ORDERED: Albuterol HFA INHALER 8 gm MDI INH PRN (15:19)
[2020-10-23] MEDS ORDERED: NS 0.9% 1000 ml BAG 1,000 ML IV ONE (16:32)
[2020-10-23] MEDS ORDERED: Dextrose 50% Syringe 50 ml 25 GM/50 ML SYRINGE IV PUSH PRN (16:32)
[2020-10-23] MEDS ORDERED: Magnesium Sulfate IV 3 GM in NS 0.9% 100 ml BAG 100 ML IVPB ONE (17:19)
[2020-10-23 17:20] LABS: Blood Urea Nitrogen 59 mg/dL (6-24); C Reactive Protein 163.12 mg/L (<8.01); CO2 Carbon Dioxide 20 mmol/L (22-32); Calcium 9.3 mg/dL (8.6-10.3); Chloride 93 mmol/L (101-111); EGFR African American 41.7 (>60); EGFR Non-African American 34.5 (>60); Glucose 160 mg/dL (70-100); Sodium 123 mmol/L (135-145)
[2020-10-23 17:22] LABS: Anion Gap 10 mmol/L (2-11); Troponin I 0.04 ng/mL (<0.03)
[2020-10-23] MEDS: DOXYcycline 100 MG in NS 0.9% 250 ml 250 ML IVPB SCH (18:03)
[2020-10-23] MEDS: Mometasone/Formoter 100/5 MDI INH SCH (20:14)
[2020-10-23] MEDS: Heparin 5000 UNITS/ML 1 mL VIAL SUBCUT SCH (20:50)
[2020-10-23] MEDS: Insulin GLARGINE 100 un/ml 10 ml VIAL SUBCUT SCH (20:50)
[2020-10-23 21:37] LABS: Troponin I 0.03 ng/mL (<0.03)
[2020-10-24 02:17] LABS: Urine Creatinine Concentration 21.22 mg/dL
[2020-10-24 02:23] LABS: Urine Potassium Concentration 5.4 mmol/L
[2020-10-24] MEDS: DOXYcycline 100 MG in NS 0.9% 250 ml 250 ML IVPB SCH ×2 (05:51→17:56)
[2020-10-24] MEDS: Heparin 5000 UNITS/ML 1 mL VIAL SUBCUT SCH ×3 (05:51→20:26)
[2020-10-24 06:11] LABS: Hematocrit 28 % (42-52); Hemoglobin 9.7 g/dL (14.0-18.0); Mean Corpuscular HGB Conc 34 g/dL (31-36); Mean Corpuscular Hemoglobin 30 pg (27-31); Mean Corpuscular Volume 87 fL (80-94); Mean Platelet Volume 9.1 fL (7.4-10.4); Platelet Count 123 10^3/uL (150-450); Red Blood Count 3.27 10^6 /uL (4.18-5.48); Red Cell Distribution Width 15 % (10-15); White Blood Count 4.3 10^3/uL (3.5-10.8)
[2020-10-24 06:28] LABS: Calcium 8.7 mg/dL (8.6-10.3); EGFR African American 53.4 (>60); EGFR Non-African American 44.1 (>60); Potassium 4.2 mmol/L (3.5-5.0)
[2020-10-24 06:45] LABS: ABS Lymphocytes 1.4 10^3/ul (1.0-4.8); ABS Monocytes 0.8 10^3/ul (0-0.8); Eosinophil % 0.3 %; Lymphocyte % 33.1 %; Nucleated Red Blood Cells % 0.1
[2020-10-24] MEDS: Mometasone/Formoter 100/5 MDI INH SCH ×2 (07:36→20:11)
[2020-10-24 11:05] LABS: PCO2 Arterial 31 mmHg (35-45); PO2 Arterial 109 mmHg (80-100)
[2020-10-24 11:34] LABS: Hematocrit 30 % (42-52); Mean Corpuscular HGB Conc 34 g/dL (31-36); Mean Corpuscular Hemoglobin 30 pg (27-31); Mean Corpuscular Volume 87 fL (80-94); Mean Platelet Volume 9.5 fL (7.4-10.4); Platelet Count 132 10^3/uL (150-450); Red Blood Count 3.39 10^6 /uL (4.18-5.48); Red Cell Distribution Width 15 % (10-15); White Blood Count 4.4 10^3/uL (3.5-10.8)
[2020-10-24 11:35] LABS: ABS Lymphocytes 1.8 10^3/ul (1.0-4.8); ABS Monocytes 0.7 10^3/ul (0-0.8); ABS Neutrophils 1.8 10^3/ul (1.5-7.7); Eosinophil % 0.9 %; Lymphocyte % 40.8 %; Nucleated Red Blood Cells % 0.2
[2020-10-24 11:47] LABS: Albumin 3.1 g/dL (3.2-5.2); Albumin/Globulin Ratio 0.9 (1-3); EGFR African American 55.4 (>60); EGFR Non-African American 45.8 (>60); Globulin 3.3 g/dL (2-4); Potassium 4.1 mmol/L (3.5-5.0); Total Bilirubin 0.4 mg/dL (0.2-1.0); Total Protein 6.4 g/dL (6.4-8.9)
[2020-10-24 12:07] LABS: RBC Morphology Normal (Normal)
[2020-10-24 12:58] LABS: RBC Parasite Smear No Parasites Seen (No Parasite)
[2020-10-24] MEDS: Insulin GLARGINE 100 un/ml 10 ml VIAL SUBCUT SCH (20:32)
[2020-10-25 04:26] LABS: Hematocrit 27 % (42-52); Hemoglobin 9.3 g/dL (14.0-18.0); Mean Corpuscular HGB Conc 34 g/dL (31-36); Mean Corpuscular Hemoglobin 30 pg (27-31); Mean Corpuscular Volume 87 fL (80-94); Mean Platelet Volume 9.5 fL (7.4-10.4); Platelet Count 134 10^3/uL (150-450); Red Blood Count 3.12 10^6 /uL (4.18-5.48); Red Cell Distribution Width 15 % (10-15); White Blood Count 4.7 10^3/uL (3.5-10.8)
[2020-10-25 04:41] LABS: Calcium 8.8 mg/dL (8.6-10.3); EGFR African American 66.4 (>60); EGFR Non-African American 54.9 (>60); Magnesium 1.6 mg/dL (1.9-2.7); Potassium 4.2 mmol/L (3.5-5.0)
[2020-10-25] MEDS: Heparin 5000 UNITS/ML 1 mL VIAL SUBCUT SCH ×3 (05:44→21:21)
[2020-10-25] MEDS: DOXYcycline 100 MG in NS 0.9% 250 ml 250 ML IVPB SCH ×2 (05:44→17:26)
[2020-10-25] MEDS ORDERED: Magnesium Sulfate 2 gm BAG 2 GM/50 ML BAG IVPB ONE (07:09)
[2020-10-25] MEDS: Mometasone/Formoter 100/5 MDI INH SCH ×2 (07:15→19:02)
[2020-10-25] MEDS: Insulin GLARGINE 100 un/ml 10 ml VIAL SUBCUT SCH (21:36)
[2020-10-26] MEDS: DOXYcycline 100 MG in NS 0.9% 250 ml 250 ML IVPB SCH (05:20)
[2020-10-26] MEDS: Heparin 5000 UNITS/ML 1 mL VIAL SUBCUT SCH ×3 (05:20→21:49)
[2020-10-26 06:25] LABS: Hematocrit 29 % (42-52); Hemoglobin 9.5 g/dL (14.0-18.0); Mean Corpuscular HGB Conc 33 g/dL (31-36); Mean Corpuscular Hemoglobin 29 pg (27-31); Mean Corpuscular Volume 88 fL (80-94); Mean Platelet Volume 9.3 fL (7.4-10.4); Platelet Count 181 10^3/uL (150-450); Red Blood Count 3.27 10^6 /uL (4.18-5.48); Red Cell Distribution Width 15 % (10-15); White Blood Count 6.2 10^3/uL (3.5-10.8)
[2020-10-26 06:40] LABS: Calcium 8.9 mg/dL (8.6-10.3); EGFR African American 71.5 (>60); EGFR Non-African American 59.1 (>60); Magnesium 1.6 mg/dL (1.9-2.7); Potassium 4.2 mmol/L (3.5-5.0)
[2020-10-26] MEDS ORDERED: Magnesium Sulfate IV 3 GM in NS 0.9% 100 ml BAG 100 ML IVPB ONE (07:09)
[2020-10-26] MEDS: Mometasone/Formoter 100/5 MDI INH SCH ×2 (07:44→19:03)
[2020-10-26 07:50] LABS: RBC Morphology Normal (Normal)
[2020-10-26 07:51] LABS: ABS Eosinophils 0.1 10^3/ul (0-0.6); ABS Lymphocytes 4.1 10^3/ul (1.0-4.8); ABS Monocytes 0.6 10^3/ul (0-0.8); ABS Neutrophils 1.4 10^3/ul (1.5-7.7); Lymphocyte % 65.6 %; Nucleated Red Blood Cells % 0.1
[2020-10-26] MEDS ORDERED: Dextrose 50% Syringe 50 ml 25 GM/50 ML SYRINGE IV PUSH PRN (14:37)
[2020-10-26] MEDS: Insulin GLARGINE 100 un/ml 10 ml VIAL SUBCUT SCH (21:48)
[2020-10-27 00:23] LABS: Anaplasma phagocytophilum Positive (Negative); B. miyamotoi PCR, B Negative (Negative); Babesia divergens/MO-1 Negative (Negative); Babesia ducani Negative (Negative); Ehrlichia chaffeensis Negative (Negative); Ehrlichia ewingii/canis Negative (Negative); Ehrlichia muris eauclairensis Negative (Negative)
[2020-10-27 05:20] LABS: ABS Eosinophils 0.2 10^3/ul (0-0.6); ABS Monocytes 0.6 10^3/ul (0-0.8); ABS Neutrophils 1.8 10^3/ul (1.5-7.7); Eosinophil % 2.9 %; Hematocrit 29 % (42-52); Hemoglobin 9.7 g/dL (14.0-18.0); Lymphocyte % 53.5 %; Mean Corpuscular HGB Conc 34 g/dL (31-36); Mean Corpuscular Hemoglobin 29 pg (27-31); Mean Corpuscular Volume 87 fL (80-94); Mean Platelet Volume 8.8 fL (7.4-10.4); Nucleated Red Blood Cells % 0.1; Platelet Count 224 10^3/uL (150-450); Red Cell Distribution Width 15 % (10-15); White Blood Count 5.7 10^3/uL (3.5-10.8)
[2020-10-27] MEDS: Heparin 5000 UNITS/ML 1 mL VIAL SUBCUT SCH ×3 (05:33→21:09)
[2020-10-27 05:39] LABS: Calcium 9.3 mg/dL (8.6-10.3); EGFR African American 70.9 (>60); EGFR Non-African American 58.6 (>60); Magnesium 1.7 mg/dL (1.9-2.7); Potassium 4.9 mmol/L (3.5-5.0)
[2020-10-27] MEDS ORDERED: Magnesium Sulf 4 GM/100 ML IV 4,000 MG/100 ML BAG IVPB ONE (07:29)
[2020-10-27] MEDS: Mometasone/Formoter 100/5 MDI INH SCH ×2 (07:51→20:03)
[2020-10-27 12:13] LABS: IgG Immunoblot Negative (Negative); IgM Immunoblot Positive (Negative)
[2020-10-27 17:23] LABS: Magnesium 2.4 mg/dL (1.9-2.7)
[2020-10-27] MEDS: Insulin GLARGINE 100 un/ml 10 ml VIAL SUBCUT SCH (21:57)
[2020-10-28] MEDS: Heparin 5000 UNITS/ML 1 mL VIAL SUBCUT SCH ×2 (05:02→14:04)
[2020-10-28] MEDS: Mometasone/Formoter 100/5 MDI INH SCH (07:56)
[2020-10-28 11:00] LABS: C Reactive Protein 22.18 mg/L (<8.01)
[2020-10-28 11:57] VITALS: BP 135/82
== END 2020-10-28 15:55 | disposition home or self-care (01) | DRG 867 ==
LOC: ED 11:09 → MEDTELE 15:04
PROVIDERS: ADMIT Internal Medicine; ATTEND Internal Medicine